=== PATIENT | male | born 1925 | race Caucasian/White ===

== ENCOUNTER 2016-07-30 10:10 | Emergency (ER) | payer MEDICARE ==
--- NOTE | 2016-07-30 10:51 | EDM.PDOC ---
ED HPI NEURO - General Chief Complaint: Neuro Symptoms/Deficits Stated Complaint: STROKE SYMPTOMS Time Seen by Provider: 07/30/16 10:40 Source: Reports: Patient History Limitations: Reports: No limitations - History of Present Illness INITIAL COMMENTS - FREE TEXT/NARRATIVE: 89-year-old male who has been having some persistent tongue numbness and discoordination along with some left facial weakness since having a severe headache yesterday. He has no peripheral symptoms, difficulty walking or weakness of the upper extremities. No visual complaints. He was in the clinic yesterday for a pro time, went over to a local store to do some shopping when he developed an intense headache. He went home to lie down and it became frontal, and he developed tongue symptoms as well as some dysarthria. He took a long nap, when he woke up the headache was improved but the facial symptoms have persisted. Timing/Duration: Reports: Day(s): (One day) Quality (Neuro Complaint): Reports: numbness, weakness, altered sensation Severity: mild - Related Data Allergies/ADRs: Allergies Allergy/AdvReac Type Severity Reaction Status Date / Time No Known Allergies Allergy Verified 07/26/15 08:13 Home Meds: Home Meds Allopurinol 100 mg PO DAILY 05/22/13 [History] Furosemide 20 mg PO DAILY 05/22/13 [History] Potassium Chloride [Klor-Con M20] 20 meq PO DAILY 05/22/13 [History] Warfarin Sodium 5 mg PO ASDIRECTED 05/22/13 [History] metFORMIN [Glucophage] 500 mg PO DAILY 05/22/13 [History] Aspirin [Adult Low Dose Aspirin EC] 81 mg PO DAILY 06/12/14 [History] Metoprolol Tartrate [Lopressor] 75 mg PO BID 07/26/15 [History] Warfarin [Coumadin] 7.5 mg PO ASDIRECTED 07/26/15 [History] Amoxicillin/Clavulanate K [Augmentin 875-125 MG] 1 tab PO BID 07/30/16 [History] Omeprazole [Omeprazole] 40 mg PO DAILY 07/30/16 [History] Past Medical History HEENT History: Reports: Cataract, Hard of hearing, Impaired vision Cardiovascular History: Reports: Afib, CAD, High cholesterol, Hypertension, Stents Respiratory History: Reports: Asthma, SOB Gastrointestinal History: Reports: GERD Musculoskeletal History: Reports: Back pain, chronic, Gout Neurological History: Reports: Migraines Psychiatric History: Reports: Anxiety, Depression Endocrine/Metabolic History: Reports: Diabetes, type II, Obesity/BMI 30+ Hematologic History: Reports: Blood transfusion(s) Oncologic (Cancer) History: Reports: Basal cell carcinoma - Past Surgical History Cardiovascular Surgical History: Reports: Coronary artery bypass, Coronary artery stent GI Surgical History: Reports: Appendectomy, Cholecystectomy, Colonoscopy, EGD, Hernia repair/other Social & Family History - Tobacco Use Smoking Status *Q: Never Smoker Second Hand Smoke Exposure: No - Alcohol Use Days Per Week of Alcohol Use: 0 - Recreational Drug Use Recreational Drug Use: No ED ROS GENERAL - Review of Systems Review Of Systems: See Below Constitutional: Denies: fever, chills HEENT: Reports: Rhinitis Respiratory: Denies: shortness of breath, cough Cardiovascular: Denies: Chest pain GI/Abdominal: Denies: Abdominal pain, Nausea, Vomiting : Reports: no symptoms Skin: Reports: no symptoms Neurological: Reports: headache (Yesterday) ED EXAM, NEURO - Physical Exam Exam: See Below Exam Limited By: No limitations General Appearance: alert, no apparent distress Eye Exam: bilateral eye: EOMI Throat/Mouth: Other (Patient has some slight dysarthria and slight weakness or drooping of the left side of his mouth. No weakness around the eyes.) Neck: normal inspection Respiratory/Chest: no respiratory distress GI/Abdominal: soft, non tender Neurological: alert, normal mood/affect, abnormal motor (Left face only) Psychiatric: normal affect, normal mood Skin Exam: Warm, Dry Course - Vital Signs Last Recorded V/S: Last Vital Signs Temp 95.5 F 07/30/16 10:56 Pulse 62 07/30/16 10:56 Resp 16 07/30/16 10:56 BP 198/95 H 07/30/16 10:56 Pulse Ox 97 07/30/16 10:56 - Re-Assessments/Exams Free Text/Narrative Re-Assessment/Exam: 07/30/16 11:[address] of the head without contrast was obtained which was negative for any acute cerebral event. He does have some sinus disease. I suspect this may be Quezada's palsy but will hold off on steroids at this time as he seems to be improving. He will return if worsening or concerns. Recheck next week if not improving satisfactorily. Departure - Departure Time of Disposition: 12:01 Disposition: Home, Self-Care 01 Condition: good Clinical Impression: Left-sided Quezada's palsy Instructions: Quezada Palsy Referrals: Óscar Spain MD [Primary Care Provider] - Forms: ED Department Discharge Care Plan Goals: Continue your current medications and increase activity as tolerated. Consider recheck next week if not improving satisfactorily, or return sooner at any time if worsening or concerns.
[2016-07-30 10:59] VITALS: BP 198/95
--- NOTE | 2016-07-30 11:02 | CT ---
Head wo Cont HISTORY: Headache. Dysarthria. Facial weakness. COMPARISON: August 2012. FINDINGS:There is central and cortical cerebral atrophy consistent with age. There is no hemorrhage, mass effect, or edema. Low attenuation is demonstrated throughout the deep periventricular white ma tter. The findings are most consistent with chronic ischemic microvascular changes of the white winsome er. The brainstem and posterior fossa are unremarkable. The orbital structures demonstrate no abnorm alities. There are fairly extensive inflammatory changes of the sinuses. There is mucosal thickening and partial consolidation of the maxillary sinuses. There is ethmoid air cell consolidation. IMPRESSION: 1. Stable age-related involutional changes. No acute intracranial changes are demonstrated. 2. Inflammatory sinus disease.
== END 2016-07-30 12:01 | disposition home or self-care (01) ==
LOC: JP.ED 10:10
DX: G51.0 Bell's palsy (principal); I48.91 Unspecified atrial fibrillation; E78.00 Pure hypercholesterolemia, unspecified; I10 Essential (primary) hypertension; I25.810 Atherosclerosis of coronary artery bypass graft(s) without angina pectoris; J45.909 Unspecified asthma, uncomplicated; K21.9 Gastro-esophageal reflux disease without esophagitis; F41.9 Anxiety disorder, unspecified; F32.9 Major depressive disorder, single episode, unspecified; E11.9 Type 2 diabetes mellitus without complications; E66.9 Obesity, unspecified; Z79.82 Long term (current) use of aspirin; Z79.01 Long term (current) use of anticoagulants; Z79.84 Long term (current) use of oral hypoglycemic drugs; Z79.899 Other long term (current) drug therapy; Z90.49 Acquired absence of other specified parts of digestive tract
CPT/HCPCS: 70450; 70450-26; 99283; 99284-25